=== PATIENT | female | born 1965 | race Caucasian/White ===

== ENCOUNTER 2017-08-13 11:16 | Day surgery (SDC) | payer OTHER ==
[~2017-08-13 11:16] MED LIST: Buffered Lidocaine 0.9% SYRIN* 5 ML/SYR SYRINGE INTRADERM ONE; Dexamethasone IV* 4 MG/ML 1 ML (4 MG) IV SLOW PU ONE; Famotidine IV* 10 MG/ML 2 ML (20 mg) IV ONE
[2017-08-13] MEDS ORDERED: Famotidine IV* 10 MG/ML 2 ML (20 mg) ONE (11:47)
[2017-08-13] MEDS ORDERED: Dexamethasone IV* 4 MG/ML 1 ML (4 MG) ONE (11:47)
[2017-08-13] MEDS ORDERED: ceFAZolin 2 GM PREMIX (*) 2 GM/50 ML BAG IVPB ONE (11:47)
[2017-08-13] MEDS ORDERED: fentaNYL* 50 MCG/ML 2 ML VIAL (100 MCG VIAL) ONE (11:55)
[2017-08-13] MEDS ORDERED: Midazolam* 1 MG/ML 2 ML VIAL (2 MG) ONE (11:55)
[2017-08-13] MEDS ORDERED: Metoclopramide IV* 5 MG/ML 2 ML VIAL ONE (12:10)
[2017-08-13] MEDS ORDERED: Bupivacaine 0.5% SDV PF* 30ML VIAL ONE (13:17)
[2017-08-13] MEDS ORDERED: Naloxone* 0.4 MG/ML 1 ML VIAL IV PRN (13:56)
[2017-08-13] MEDS ORDERED: DiMENhydriNATE IV* 50 MG/ML VIAL IV PUSH PRN (13:56)
[2017-08-13] MEDS ORDERED: Propofol* 10 MG/ML 20 ML BTL IV PUSH ONE (14:11)
[2017-08-13] MEDS ORDERED: Ondansetron INJ* 2 MG/ML VIAL ONE (14:11)
[2017-08-13] MEDS ORDERED: DiMENhydriNATE IV* 50 MG/ML VIAL ONE (15:05)
[2017-08-13 15:17] VITALS: BP 117/71
--- NOTE | 2017-08-14 08:32 | OP ---
OPERATIVE REPORT: DATE OF OPERATION: 08/13/17 - ERENDIRA DATE OF : 69 SURGEON: Bubba Camilo MD. [place] MATE: MARGARET De León. An nurses medical assistants phlebotomists was needed for the entirety of the procedure to aid in the positioning of the arm and retraction. ANESTHESIOLOGIST: Dr. Polk. ANESTHESIA: General. PRE-OP DIAGNOSIS: 1. 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 2. Right ring finger cutaneous neuroma. POST-OP DIAGNOSIS: OPERATIVE PROCEDURE: 1. Neurolysis of the right third common digital nerve with nerve wrapping. 2. Neurolysis of the right fourth common digital nerve with excision of what look like a neuroma and nerve wrapping. 3 Excision of right ring finger cutaneous neuroma. INDICATIONS: Nhung had an injury at work back in September 2015 when she was working with an air cylinder that came up and crushed the area of ring and middle finger near the proximal phalanx area and distal palm area. She did have some sutures placed over the volar radial aspect of the ring finger. This is healed up, but right over near the area of the PIP joint flexion crease. She has a very symptomatic and sensitive cutaneous neuroma. Additionally, she complains of intermittent numbness and tingling in the ring and small finger and a lot of cold insensitivity. She has a lot of tenderness in the palm, right over the mid to distal aspect of the third and fourth common digital nerves. I have gotten electrodiagnostic studies, which were read as normal. Because of the sensitivity she was having in the palm, I ordered an MRI which was read as concerning for some perineural fibrosis and neuritis in the area of the common digital nerves. Certainly, I cannot completely definitely rule out any peripheral nerve compression such as cubital tunnel syndrome or ulnar nerve compression of the wrist. However, she is very sensitive in the palm. Mechanism was in the form a crush injury. This all aligns with the MRI finding in the area. I told her that we could explore the area and perform a neurolysis and excise any neuroma type tissue that I saw and then wrap the nerves to see if we could get her some relief, in addition we would excise that very sensitive cutaneous neuroma that she has. She is very much agreed and wanted to see if she could get some relief. ESTIMATED BLOOD LOSS: 5 mL. COMPLICATIONS: None. FINDINGS: Coming off the fourth common digital nerve, there was an area of disorganized neural tissue off one of the cutaneous branches right in the area of the sensitivity. This was excised as a potential neuroma and sent to the lab for examination. DESCRIPTION OF PROCEDURE: Nhung was seen in the preoperative holding area. The correct site, side, and procedure were identified. We came back to the operating room where the arm was prepped and draped in the usual fashion. A time-out was performed. The arm was exsanguinated with the Esmarch and the tourniquet was inflated to 250 mmHg. I first ellipsed out the area of the cutaneous neuroma. This left about a 1 cm long wound. All nonnormal appearing tissue was fully excised. The digital nerve was visualized and preserved in the base of the wound. After this area was excised and sent off as specimen, I went ahead and closed the wound with a couple of 4-0 nylon sutures. I then made a Dillon-type incision over the ulnar side of the palm. Dissection was carried down and full thickness flaps were raised off the underlying tendon sheath and both common digital nerve neurovascular bundles were visualized. The skin flaps were sewn back with 4-0 nylon. As I was raising the flaps, I did note a cutaneous branch coming off of the fourth common digital nerve that had a quite a bit of disorganized neural tissue in line with it, that was a concerning for a neuroma. I excised this and sent this to the lab for evaluation. I then performed a full neurolysis first at the fourth common digital nerve and then of the third common digital nerve. This was taken from where the nerve became apparent distal to the superficial palmar arch and then down to where the nerves bifurcated into the 2 proper digital nerves. There was some scar tissue in that same area around the third common digital nerve. It looked like it was involving to some extent the vertical septum of the . This was all excised and a full neurolysis was performed. I then took a 10 x 20 mm AxoGuard nerve wrap and split it longitudinally to create two 5 x 20 mm nerve wraps. I then placed one around the fourth common digital nerve and secured this with multiple side to side 8.0 nylon sutures. Once that nerve was wrapped, I took the other half of my nerve wrap and I placed it around the third common digital nerve and this was secured again with multiple 8.0 nylon sutures. Once both nerves were wrapped and everything was looking good, there was absolutely no compression or anything that could be irritating the nerve. Hemostasis was obtained. I irrigated out the wound. Skin was closed with 4-0 nylon sutures. The wounds were dressed with Xeroform, 4 x 4s, sterile Webril, and soft dressing, and an Jared bandage. I had infiltrated 0.5% Marcaine in the operative area. Tourniquet was deflated. The fingers pinked up immediately. She was then taken to recovery room in stable condition. [id number]/[facility] #: [id number] DAPHNE
== END 2017-08-13 15:37 | disposition home or self-care (01) ==
LOC: OREAST 11:16
PROVIDERS: ATTEND Orthopaedic Surgery Hand Surgery
DX: S64.494 Injury of digital nerve of right ring finger (principal); S64.493 Injury of digital nerve of left middle finger; G62.89 Other specified polyneuropathies; X58.XXXS Exposure to other specified factors, sequela; Y92.69 Other specified industrial and construction area as the place of occurrence of the external cause
CPT/HCPCS: 88304; J0690; J1100; J1240; J2250; J2405; J2704; J2765; J3010